=== PATIENT | female | born 1985 | race Caucasian/White ===

== ENCOUNTER → 2021-09-14 07:52 | Outpatient (CLI) | payer OTHER, SELFPAY ==
--- NOTE | ~2021-09-14 | MMUS_ITS ---
EXAMINATION: MM diagnostic tk BI w vivienne, US breast LT limited HISTORY: Left breast pain TECHNIQUE: Additional 3-D tomosynthesis images of the breasts were performed and synthetic 2-D images were generated. CAD analysis was submitted and interpreted. High resolution Limited left breast ultr asound was performed. COMPARISON: None BREAST PARENCHYMAL COMPOSITION: Breast composed of scattered areas of fibroglandular density FINDINGS: MAMMOGRAPHIC FINDINGS: There are no suspicious masses, calcifications or architectural distortion in either breast to sugges t malignancy. ULTRASOUND: Limited left breast ultrasound: Normal heterogeneous echotexture without focal solid or cystic mass. IMPRESSION: 1. No evidence for malignancy in either breast. 2. Routine yearly screening mammogram and regular clinical breast examination are recommended. BI-RADS Category 1: Negative Reviewed, dictated and finalized at location A. IMPRESSION: 1. No evidence for malignancy in either breast. 2. Routine yearly screening mammogram and regular clinical breast examination a re recommended. BI-RADS Category 1: Negative
== END ==
PROVIDERS: Visit Provider Nurse Practitioner
DX: N64.4 Mastodynia (principal)
CPT/HCPCS: 76642; 77062; 77066; G0279

== ENCOUNTER 2022-01-06 08:53 | Emergency (ER) | payer OTHER, SELFPAY ==
[2022-01-06 09:02] VITALS: BP 150/95; PULSE 85; RESP 20; TEMP 36.1; O2SAT 100
--- NOTE | 2022-01-06 09:09 | ED.FEMALEGU ---
HPI - Female Genitourinary General Chief complaint: Urogenital-Female Stated complaint: problem urinating back pain History of Present Illness HPI Narrative: PATIENT PRESENTS WITH URINARY SYMPTOMS. BURNING WITH URINATION. NO FLANK PAIN, NO ABDOMINAL PAIN, NO PELVIC PAIN AND NO GROSS HEMATURIA. NO CONCERN FOR STI. NO VAGINAL DISCHARGE. PATIENT REPORTS URINATING OFTEN, BURNING WITH URINATION AND VOIDS SMALL AMOUNTS. PATIENT DOES REPORT OCCASIONAL NAUSEA . Related Data Home Medications Medication Instructions Recorded Confirmed ergocalciferol (vitamin D2) 1,250 1,250 mcg PO DAILY 01/06/22 01/06/22 mcg (50,000 unit) capsule Allergies Allergy/AdvReac Type Severity Reaction Status Date / Time No Known Allergies Allergy Unknown Verified 01/06/22 08:57 Review of Systems Review of Systems: CONSTITUTIONAL: Denies fever, chills, or sweats. EYES: Denies visual changes, redness, or discharge. ENT: Denies rhinorrhea, congestion, sore throat, or otalgia. CARDIOVASCULAR: Denies chest pain, palpitations, or edema. RESPIRATORY: Denies cough or dyspnea. GASTROINTESTINAL: Denies abdominal pain, nausea, vomiting, or diarrhea. GENITOURINARY: Denies dysuria or hematuria. SKIN: Denies rash or itching. MUSCULOSKELETAL: Denies back pain, joint pain, or myalgia. NEUROLOGIC: Denies headache, numbness, or weakness. PSYCHIATRIC: Denies anxiety or depression. [facility] Past Medical History Medical History (Updated 01/06/22 @ 09:13 by TONE Irving) Ovarian cyst Sinusitis Social History Social History (Updated 05/30/19 @ 12:03 by Rakel Madrid NP) Smoking status: Never smoker Substance use: never Gender identity (if verbalized by the patient): Female Comments At time of signature, agree with nursing past medical, surgical, social and family history. There is no relevant family history pertinent to the presenting complaint Exam Narrative: GENERAL: Well-appearing, well-nourished, and in no acute distress. HEAD: Normocephalic, atraumatic. EYES: PERRLA and EOMI. ENT: Nares clear, no rhinorrhea or epistaxis. Mucous membranes moist. NECK: Supple. CHEST: Clear to auscultation. No respiratory distress. HEART: Regular rate and rhythm. No murmur heard. Normal peripheral pulses. ABDOMEN: Soft, nontender, nondistended, normal active bowel sounds. EXTREMITIES: Normal range of motion. No edema. SKIN: Warm, dry, no rash. NEURO: No focal deficits. Alert and oriented x3. [place] Coma Scale Eye Opening: Spontaneous 4 [place] Coma Scale Motor: Obeys Commands 6 [place] Coma Scale Verbal: Oriented 5 [place] Coma Scale Total 15 Course Course Level of Care: Express Care Visit Vital Signs Vital signs: Vital Signs Temperature 36.1 C L 01/06/22 09:02 Pulse Rate 85 01/06/22 09:02 Respiratory Rate 20 01/06/22 09:02 Blood Pressure 150/95 H 01/06/22 09:02 Pulse Oximetry 100 01/06/22 09:02 Oxygen Delivery Room Air 01/06/22 09:02 Temperature 36.1 C L 01/06/22 09:02 Pulse Rate 85 01/06/22 09:02 Respiratory Rate 20 01/06/22 09:02 Blood Pressure 150/95 H 01/06/22 09:02 Pulse Oximetry 100 01/06/22 09:02 Oxygen Delivery Room Air 01/06/22 09:02 Please NEFTALY schedule a followup visit with your personal physician for further evaluation and treatment. Including recheck and discussion of your blood pressure. If your symptoms persist, change or worsen significantly before you can contact your personal physician then please, without delay, go to the emergency department for further evaluation MDM - Female Genitourinary Lab Data Labs: Urine Glucose Negative Reference Range: Negative Urine Bilirubin Negative Reference Range: Negative Urine Ketone Negative Reference Range: Negative Urine Specific [place]
== END 2022-01-06 09:17 | disposition home or self-care (01) ==
PROVIDERS: Emergency Provider Nurse Practitioner Family; PCP Internal Medicine Geriatric Medicine
DX: N39.0 Urinary tract infection, site not specified (principal)
CPT/HCPCS: 81003; 87077; 87086; 87186; 99213; G0463

== ENCOUNTER 2023-01-15 08:20 | Emergency (ER) | payer BC, SELFPAY ==
--- NOTE | ~2023-01-15 | XR_ITS ---
EXAMINATION: XR ankle RT min 3V DATE: 01/15/2023 08:44 INDICATION: Right ankle injury and pain and swelling. TECHNIQUE: 4 views of right ankle were obtained. COMPARISON: None. FINDINGS: Bone alignment is normal. No fracture. Joint spaces are normal. There is ankle soft tissue swelling. IMPRESSION: 1. No fracture. Reviewed, dictated and finalized at location A. IMPRESSION: 1. No fracture.
[2023-01-15 08:31] VITALS: BP 154/100; PULSE 92; RESP 16; TEMP 36.6; O2SAT 100
[2023-01-15] MEDS: IBUPROFEN 400 MG TABLET PO (08:41)
--- NOTE | 2023-01-15 08:49 | ED.GENADULT ---
HPI - General Adult General Chief complaint: Extremity Injury, Lower Stated complaint: Right Ankle Injury Source: patient Mode of arrival: ambulatory Limitations: no limitations History of Present Illness HPI narrative: Patient of right ankle pain since yesterday. She indicates she rolled her ankle when stepping off her driveway. She now has 6/10 pain in the affected joint, described as throbbing and sharp. Pain radiates proximally. She has associated numbness and tingling in the right ankle. She is able to bear weight but states that that cause worsening pain. She took 400 mg of ibuprofen this morning with modest improvement in her pain thereafter. She reports associated bruising. Related Data Home Medications Medication Instructions Recorded Confirmed levonorgestrel 0.15 mg-ethinyl 1 ea PO DAILY 01/15/23 01/15/23 estradiol 30 mcg tablets,3 mos pack(91) Allergies Allergy/AdvReac Type Severity Reaction Status Date / Time No Known Allergies Allergy Unknown Verified 01/15/23 08:32 Review of Systems Review of Systems: CONSTITUTIONAL: Denies fever, chills, or sweats. EYES: Denies visual changes, redness, or discharge. ENT: Denies rhinorrhea, congestion, sore throat, or otalgia. CARDIOVASCULAR: Denies chest pain, palpitations, or edema. RESPIRATORY: Denies cough or dyspnea. GASTROINTESTINAL: Denies abdominal pain, nausea, vomiting, or diarrhea. GENITOURINARY: Denies dysuria or hematuria. SKIN: Reports bruising to right ankle MUSCULOSKELETAL: Reports pain and swelling in right ankle NEUROLOGIC: Denies headache, numbness, dizziness, or weakness. PSYCHIATRIC: Denies anxiety or depression. [facility] Past Medical History Medical History (Updated 01/15/23 @ 09:14 by TONE Garcia, ENRRIQUE) Ovarian cyst Right ankle sprain Sinusitis Surgical History Surgical History No pertinent past surgical history Family History Family History (Updated 01/15/23 @ 09:06 by TONE Garcia, ENRRIQUE) Mother No problems noted. Social History Social History (Updated 01/15/23 @ 09:15 by TONE Garcia, ENRRIQUE) Smoking status: Never smoker Alcohol intake: current Alcohol use details: socially Substance use: current Living arrangements: with family Gender identity (if verbalized by the patient): Female Exam Narrative: GENERAL: Well-appearing, well-nourished, and in no acute distress. HEAD: Normocephalic, atraumatic. EYES: PERRLA and EOMI. ENT: Nares clear, no rhinorrhea or epistaxis. Mucous membranes moist. Oropharynx without tonsillar hypertrophy exudate or other lesions. Bilateral TMs pearly urias nonbulging NECK: Supple. No adenopathy or masses. No carotid bruits or JVD CHEST: Clear to auscultation. No respiratory distress. No wheezes rales or rhonchi HEART: Regular rate and rhythm. No murmur heard. Normal peripheral pulses. ABDOMEN: Soft, nontender, nondistended, normal active bowel sounds. EXTREMITIES: Able to dorsi and plantar flex the right foot. Soft tissue swelling noted to right ankle. Tenderness noted over right lateral malleolus SKIN: Ecchymosis noted to the lateral aspect of the right ankle. Warm, dry, no rash. NEURO: No focal deficits. Alert and oriented x3. PSYCH: Normal mood and affect. Course Course Emergency Course: This is a 37-year-old female who presented for evaluation of right ankle pain after an injury yesterday. X-ray was negative for fracture. She was given ibuprofen while here. Ankle was wrapped with an Bharat bandage. Follow-up with primary care provider. NSAIDs for pain and tramadol for breakthrough. Go to ER for worsening symptoms. Pt in agreement with plan of care. Level of Care: Express Care Visit Vital Signs Vital signs: Vital Signs Temperature 36.6 C 01/15/23 08:31 Pulse Rate 92 01/15/23 08:31 Respiratory Rate 16 01/15/23 08:31 Blood Pressure 154/100 H
== END 2023-01-15 09:23 | disposition home or self-care (01) ==
PROVIDERS: Emergency Provider Nurse Practitioner; PCP Internal Medicine Geriatric Medicine
DX: S93.401A Sprain of unspecified ligament of right ankle, initial encounter (principal); X50.9XXA Other and unspecified overexertion or strenuous movements or postures, initial encounter
CPT/HCPCS: 73610; 99213; A9270; G0463